=== PATIENT | male | born 1985 | race Caucasian/White ===

== ENCOUNTER 2017-05-05 09:46 | Emergency (ER) | payer MEDICAID, OTHER ==
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
[2017-05-05] MEDS ORDERED: SILVER SULFADIAZINE 1% CREAM 25 GM TP ONE (10:41)
[2017-05-05] MEDS ORDERED: DIPH/PERTUSS(ACELL)/TETANUS VAC/PF 0.5 ML SYR (>=10YO) IM ONE (10:41)
[2017-05-05 11:33] VITALS: BP 99/49
== END 2017-05-05 11:33 | disposition home or self-care (01) ==
LOC: ER 09:46
DX: T22.132A Burn of first degree of left upper arm, initial encounter (principal); X11.8XXA Contact with other hot tap-water, initial encounter; F17.200 Nicotine dependence, unspecified, uncomplicated
CPT/HCPCS: 99283; 90471; 90715; J3490